=== PATIENT | female | born 1995 | race Two or more races ===

== ENCOUNTER 2024-11-08 11:55 | Emergency (ER) | payer OTHER, SELFPAY ==
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
[2024-11-08 12:09] VITALS: BP 119/59; BP 134/86; PULSE 76; PULSE 98; RESP 20; TEMP 36.6; O2SAT 100; O2SAT 98; BMI 21.7
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
[2024-11-08] MEDS: Acetaminophen 325 MG TABLET 975 MG PO (12:49)
[2024-11-08] MEDS: Ondansetron ODT 4 MG TAB.RAPDIS TRANSLINGU (12:50)
[2024-11-08] MEDS: Cyclobenzaprine HCl 5 MG TABLET PO (12:53)
[2024-11-08 13:34] VITALS: BP 123/60; PULSE 87; RESP 20; TEMP 36.7; O2SAT 99
--- OUTSIDE RECORDS SUMMARY | 2024-11-08 15:28 | XMS_ITS | Encounter Summary ---
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 Name Role Phone Unavailable Primary Care Provider Unavailabl e Encounter Details Date Type Department Care Team (Latest Contact Info) Description 05/15/2021 Abstract [facility] CONVERSIONS Dental, Provider, DDS Social History Tobacco Use Types Packs/Day Years Used Date Smoking Tobacco: Never Assessed Comments Unknown Sex and Gender Information Value Date Recorded Sex Assigned at Female 06/09/2022 10:32 AM EDT Legal Sex Female 10:32 AM EDT Gender Identity Female 06/09/2022 10:32 AM EDT Sexual Orientation Straight 06/09/2022 10 :32 AM EDT documented as of this encounter Plan of Treatment Not on file documented as of this encounter Visit Diagnoses Not on filedocumented in this encounter
--- OUTSIDE RECORDS SUMMARY | 2024-11-08 15:28 | XMS_ITS | Encounter Summary ---
Author Organization [employer] Address [address] [place] [address] [address] [place] [address] Care Team Providers Care [employer] Name Role Phone Unavailable Primary Care Provider Unavailabl e Encounter Details Date Type Department Care Team (Latest Contact Info) Description 05/21/2022 Abstract [facility] CONVERSIONS Dental, Provider, DDS Social History Tobacco [...]
--- OUTSIDE RECORDS SUMMARY | 2024-11-08 15:29 | XMS_ITS | Clinical Summary ---
Author Organization [facility] Address [address] [place] [address] [address] [place] [address] Care Team Providers Care Cupola Worker Name Role Phone Unavailable Primary Care Provider Unavailabl e Allergies No known active allergies Medications hydrOXYzine HCl (Atarax) 25 MG tablet Take 1 tablet by mouth. 06/08/2023 Active DULoxetine (Cymbalta) [address] capsule Take 20 mg by mouth in the morning. 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 03/28/2024 Pediculosis capitis 03/28/2024 Premenstrual dysphoric disorder 03/28/2024 Rectal hemorrhage 03/28/2024 Straining with stools 03/28/2024 Missing teeth, acquired 09/08/2023 Dental plaque 09/08/2023 Gingival bleeding 09/08/2023 Dental abscess 03/27/2023 Social History Tobacco Use Types Packs/Day Years Used Date Smoking Tobacco: Never Passive Smoke Exposure: Never Smokeless Tobacco: Never Tobacco Cessation:Counseling Given: No Alcohol Use Standard Drinks/Week Comments Never 0 (1 standard drink = 0.6 oz pur e alcohol) Comments Unknown Sex and Gender Information Value Date Recorded Sex Assigned at Female 06/09/2022 10:32 AM EDT Legal Sex Female 10:32 AM EDT Gender Identity Female 06/09/2022 10:32 AM EDT Sexual Orientation Straight 06/09/2022 10 :32 AM EDT Last Filed Vital Signs Vital Sign Reading Time Taken Comments Blood Pressure 120/75 03/29/2024 9:43 AM EDT Pulse 60 03/29/2024 9:43 AM EDT Temperature - - Respiratory Rate - - Oxygen Saturation - - Inhaled Oxygen Concentration - - Weight - - Height - - Body Mass Index - - Plan of Treatment Health Maintenance Due Date Last Done Comments Depression Screening 1994 HIV Screening 1994 SDOH Screening 1994 Alcohol/Substance Use Screening 2006 Family Planning (PISQ) 2009 Hepatitis C Screening 02/25/2012 Pap Smear 2015 Hepatitis B Vaccines (3 of 3 - 19+ 3-dose series) 08/06/2018 03/08/2018, 02/04/2018, 05/26/2014 Dental Oral Exam 11/20/2022 05/21/2022, 05/15/2021 Cervical Cancer Screening 02/25/2024 HPV/Cotest 02/25/2024 COVID-19 Vaccine ( season) 2024 Influenza Vaccine (#1) 2024 6, 05/26/2014, 05/14/2012, Additional history exists Dental Prophylaxis 09/30/2024 03/29/2024, 0 09/08/2023, 05/21/2022, Additional history exists Tobacco Screening 03/28/2025 03/28/2024 Dental X-Ray: Bitewings 03/30/2025 03/29/20 24, 09/08/2023, 08/17/2023, Additional history exists DTaP/Tdap/Td Vaccines (5 - Td or Tdap) 03/28/2026 03/28/2016, 12/04/2014, 03/15/2013, Additional history exists Dental X-Ray: Full Mouth 03/28/2026 023, 05/15/2021, 07/10/2020 Zoster Vaccines (1 of 2) 02/25/2044 RSV Patients and Patients Aged 60 years or older (1 - 1-dose 75+ series) 2069 HPV Vaccines Completed 05/31/2010, 08/12, 07/20/2007 Meningococcal Vaccine Completed 01/12/2012, 009 HIB Vaccines Aged Out No longer eligi ble based on patient's age to complete this topic Hepatitis A Vaccines Aged Out No long er eligible based on patient's age to complete this topic IPV Vaccines Aged Out No longer eligi ble based on patient's age to complete this topic Pneumococcal Vaccine: Pediatrics (0 to 5 Years) and At-Risk Patients (6 to 49) Years) Aged Out No longer eligible based on patient's age to complete this topic RSV under 20 months Aged Out No longe r eligible based on patient's age to complete this topic Rotavirus Vaccines Aged Out No longer eligible based on patient's age to complete this topic Procedures Procedure Name Priority Date/Time Associated Diagnosis Comments PROPHYLAXIS - ADULT Routine 03/29/2024 9 :30 AM EDT BITEWINGS - 4 RADIOGRAPHIC IMAGES Routine 03/29/2024 9:30 AM EDT PANORAMIC RADIOGRAPHIC IMAGE Routine 03/27/2023 3:00 PM EDT PERIODIC ORAL EVALUATION - ESTABLISHED PATIENT Routine 05/21/2022 12:00 AM EDT from Last 3 Months or Most Recently Relevant to Health Maintenance Insurance [facility] STAND ADULT
== END 2024-11-08 13:34 | disposition home or self-care (01) ==
PROVIDERS: Emergency Provider Emergency Medicine; PCP Physician Assistant Medical
DX: S16.1XXA Strain of muscle, fascia and tendon at neck level, initial encounter (principal); S80.02XA Contusion of left knee, initial encounter; V43.52XA Car driver injured in collision with other type car in traffic accident, initial encounter; M62.838 Other muscle spasm; G44.209 Tension-type headache, unspecified, not intractable; Y93.89 Activity, other specified; Y92.410 Unspecified street and highway as the place of occurrence of the external cause; Y99.9 Unspecified external cause status
CPT/HCPCS: 73564; 99283

== ENCOUNTER → 2024-11-08 12:29 | Outpatient (BNV) | payer OTHER, SELFPAY | PROVIDERS: Emergency Provider Emergency Medicine; Visit Provider Radiology Diagnostic Radiology | DX: M25.562 Pain in left knee (principal); V89.2XXA Person injured in unspecified motor-vehicle accident, traffic, initial encounter | CPT/HCPCS: 73564 ==

== ENCOUNTER → 2025-01-25 08:15 | Outpatient (BNV) | payer OTHER, SELFPAY | PROVIDERS: Visit Provider Psychiatry & Neurology Psychiatry | DX: F34.89 Other specified persistent mood disorders (principal); F90.9 Attention-deficit hyperactivity disorder, unspecified type; F32.81 Premenstrual dysphoric disorder; F41.1 Generalized anxiety disorder; F43.9 Reaction to severe stress, unspecified | CPT/HCPCS: 99499 ==

== ENCOUNTER → 2025-01-26 12:19 | Outpatient (REF) | payer OTHER, SELFPAY ==
--- NOTE | 2025-01-26 12:25 | ECG_ITS ---
Test Reason : CHECK QT Blood Pressure : */* mmHG Vent. Rate : 64 BPM Atrial Rate : 64 BPM P-R Int : 142 ms QRS Dur : 94 ms QT Int : 390 ms P-R-T Axes : 80 70 67 degrees QTcB Int : 402 ms Normal sinus rhythm Incomplete right bundle branch block Borderline ECG No previous ECGs available Referred By: Mayela Miguel Electronically Signed By: Carlos Saez
[2025-01-26 12:54] LABS: MANUAL DIFF FLAG NO
[2025-01-26 13:20] LABS: Basophils Percent Auto 0.4 % (0-2); Eosinophils Percent Auto 0.6 % (0-4); Hematocrit 38.8 % (37.0-47.0); Hemoglobin 12.7 g/dl (12.0-16.0); Imm Gran Abs Auto 0.02 X10*3/uL (0.00-0.03); Imm Gran Pct Auto 0.4 % (0.0-0.4); Lymphocytes Absolute Auto 1.8 X10*3/uL (1.2-4.9); Lymphocytes Percent Auto 35.9 % (20-40); Mean Corpuscular HGB Conc 32.7 g/dl (31.0-35.0); Mean Corpuscular Hemoglobin 29.5 pg (27.0-33.0); Mean Corpuscular Volume 90.2 fL (80.0-98.0); Mean Platelet Volume 10.7 fL (9.4-12.3); Monocytes Absolute Auto 0.3 X10*3/uL (0.1-1.2); Monocytes Percent Auto 5.6 % (2-11); Neutrophils Absolute Auto 2.9 x10*3/uL (2.0-8.3); Neutrophils Percent Auto 57.1 % (45-73); Platelet Count 234 X10*3/uL (160-400); Red Cell Distribution Width 13.2 % (11.0-16.0)
--- OUTSIDE RECORDS SUMMARY | 2025-01-26 13:30 | XMS_ITS | Clinical Summary ---
Author Organization [facility] Address [address] [place] [address] Phone Care Team Providers Care Traffic Personnel Supervisor Name Role Phone Physician, Pcp Unknown Primary Care Provider Deborah vailable Allergies No known active allergies Encounters Date Type Department Care Team Description 12/23/2024 11:02 PM EDT - 12/24/2024 3:33 AM EDT Emergency [facility] Emergency [address] [place] [address] Discharge Disposition: Left Against Medical Advice from Last 3 Months Medical History Medical History Date Comments Asthma Social History Tobacco Use Types Packs/Day Years Used Date Smoking Tobacco: Never Smokeless Tobacco: Never Tobacco Cessation:Counseling Given: Not Answered Comments Unknown Sex and Gender Information Value Date Recorded Sex Assigned at Not on file Legal Sex Female 5:45 AM EST Gender Identity Not on file Sexual Orientation Not on file Obstetrics History Last Filed Vital Signs Vital Sign Reading Time Taken Comments Blood Pressure 119/78 12/23/2024 11:07 PM EDT Pulse 83 12/23/2024 11:07 PM EDT Temperature 37.1 C (98.8 F) 12/23/2024 11:07 PM EDT Respiratory Rate 16 12/23/2024 11:07 PM EDT Oxygen Saturation 100% 12/23/2024 11:07 PM EDT Inhaled Oxygen Concentration - - Weight 54.4 kg (120 lb) 12/23/2024 11:07 PM EDT Height 154.9 cm (5' 1 ) 12/23/2024 11:07 PM EDT Body Mass Index 22.67 12/23/2024 11:07 PM EDT Plan of Treatment Health Maintenance Due Date Last Done Comments DTaP,Tdap,and Td Vaccines (1 - Tdap) 2013 Hepatitis B Vaccines (1 of 3 - 19+ 3-dose series) 2013 Cervical Cancer Screening: P ap Smear 2015 COVID-19 Vaccine (2023-2 5 season) 2024 Depression Screening 12/24/2024 HIV Screening 12/24/2024 Hepatitis C Screening 12/24/2024 Social Influencers of Health Screening 12/24/2024 Influenza Vaccine (Season Ended) 2025 HIB Vaccines Aged Out No longer eligi ble based on patient's age to complete this topic HPV Vaccines Aged Out No longer eligi ble based on patient's age to complete this topic Hepatitis A Vaccines Aged Out No long er eligible based on patient's age to complete this topic IPV Vaccines Aged Out No longer eligi ble based on patient's age to complete this topic MMR Vaccines Aged Out No longer eligi ble based on patient's age to complete this topic Meningococcal ACWY Vaccine Aged Out N o longer eligible based on patient's age to complete this topic Meningococcal B Vaccine Aged Out No l onger eligible based on patient's age to complete this topic Pneumococcal Vaccine: Pediat rics (0 to 5 Years) and At-Risk Patients (6 to 64 Years) Aged Out No longer eligible b ased on patient's age to complete this topic RSV Immunization Patients Un jaswinder 20 months Aged Out No longer eligible b ased on patient's age to complete this topic Varicella Vaccines Aged Out No longer eligible based on patient's age to complete this topic Procedures Procedure Name Priority Date/Time Associated Diagnosis Comments ECG ANNOTATED 12/25/2024 TROPONIN I HIGH SENSITIVITY STAT 12/24/2024 1:41 AM EDT XR CHEST 2 VIEWS STAT 12/24/2024 12:0 5 AM EDT POC , URINE DIAGNOSTIC STAT 12/23/2024 11:59 PM EDT CBC WITH AUTO DIFFERENTIAL STAT 12/23/2024 11:51 PM EDT B-TYPE NATRIURETIC PEPTIDE STAT 12/23/2024 11:51 PM EDT MAGNESIUM STAT 12/23/2024 11:51 PM EDT LIPASE STAT 12/23/2024 11:51 PM EDT COMPREHENSIVE METABOLIC PANEL STAT 12/23/2024 11:51 PM EDT CBC AND DIFFERENTIAL STAT 12/23/2024 11:51 PM EDT TROPONIN I HIGH SENSITIVITY STAT 12/23/2024 11:51 PM EDT ECG 12-LEAD STAT 12/23/2024 11:17 PM EDT from Last 3 Months Results * ECG-Annotated (12/25/2024) us Provider Onbase ECG ORDERABLES Final Result * Troponin I high sensitivity (12/24/2024 1:41 AM EDT) Only the most recent of2 resultswithin the time period is included. High Sensitivity Troponin I 3 <=54 ng/L LAB CHEMISTRY METHOD 12/24/2024 2:41 AM EDT [facility] Blood Venous blood specimen / Unknown Venipuncture / Unknown 12/24/2024 1:41 AM EDT 12/24/2024 2:16 AM EDT Narrative [facility] - 12/24/2024 2:41 AM EDT High levels of biotin in samples may falsely decrease hsTroponin values. Use caution when interpreting hsTroponin results in patients taking biotin who exhibit renal impairment (eGFR <60) or in patients taking more than 20 mg/day of biotin. Adithya Cloud MD LAB BLOOD ORDERABLES Final Resu lt [facility]) [facility] [address] [place] [address], [place] [phone] * XR Chest 2 Views (12/24/2024 12:05 AM EDT) Anatomical Region Laterality Modality Body Radiographic Zully ging 12/24/2024 7:23 AM EDT Impressions 12/24/2024 7:27 AM EDT No focal pneumonia or major zone atelectasis. Relatively large lung volumes. -------- FINAL REPORT -------- Dictated By: Andrzej Lopez Dictated Date: 12/24/2024 07:23 ET Assigned Physician: Andrzej Lopez Reviewed and Electronically Signed By: Andrzej Lopez Signed Date: 12/24/2024 07:27 ET Workstation ID: [id number] Transcribed By: Self Edit Transcribed Date: 12/24/2024 07:23 ET Narrative 12/24/2024 7:27 AM EDT EXAMINATION: CHEST CLINICAL INFORMATION: Chest pain COMPARISON: Frontal view 05/20/15 TECHNIQUE: 2 views of the chest FINDINGS: The cardiac size, mediastinal contours and ellyn are within normal limits. There are large lung volumes. There is no alveolar edema. No focal area of consolidation or mediastinal atelectasis. No pleural fluid or pneumothorax. There is a biopsy site marker in the right breast. Procedure Note Andrzej Lopez MD - 12/24/2024 EXAMINATION: CHEST CLINICAL INFORMATION: Chest pain COMPARISON: Frontal view 05/20/15 TECHNIQUE: 2 views of the chest FINDINGS: The cardiac size, mediastinal contours and ellyn are within normal limits.There are large lung volumes. There is no alveolar edema. No focal area of consolidation or mediastinal atelectasis. No pleural fluid or pneumothorax. There is a biopsy site marker in the right breast. IMPRESSION: No focal pneumonia or major zone atelectasis. Relatively large lung volumes. -------- FINAL REPORT -------- Dictated By: Andrzej Lopez Dictated Date: 12/24/2024 07:23 ET Assigned Physician: Andrzej Lopez Reviewed and Electronically Signed By: Andrzej Lopez Signed Date: 12/24/2024 07:27 ET Workstation ID: [id number] Transcribed By: Self Edit Transcribed Date: 12/24/2024 07:23 ET Adithya Cloud MD IMG XR PROCEDURES Final Result * POC , urine manually resulted (12/23/2024 11:59 PM EDT) Pathologist [facility] HCG, Ur POC Negative Negative POC hCG Int QC Pass? Yes Yes Urine Urine specimen obtained by clean catch procedure / Unknown 12/23/2024 11:59 PM EDT [facility] RANGEL POINT OF CARE TEST ENTER/EDIT O RDERABLES Final Result * CBC auto differential (12/23/2024 11:51 PM EDT) [facility] WBC 7.2 4.8 - 10.8 K/mcL LAB HEMETOLOGY METHOD 12/24/2024 12:36 AM [facility] RBC 4.20 3.80 - 4.80 M/mcL LAB HEMETOLOGY METHOD 12/24/2024 12:36 AM [facility] Hemoglobin 12.6 11.5 - 16.0 g/dL LAB HEMETOLOGY METHOD 12/24/2024 12:36 AM [facility] Hematocrit 38.1 35.0 - 47.0 % LAB HEMETOLOGY METHOD 12/24/2024 12:36 AM [facility] MCV 90.9 79.0 - 98.0 FL LAB HEMETOLOGY METHOD 12/24/2024 12:36 AM [facility] MCH 30.1 27.0 - 32.0 pcg LAB HEMETOLOGY METHOD 12/24/2024 12:36 AM [facility] MCHC 33.1 32.0 - 37.0 g/dL LAB HEMETOLOGY METHOD 12/24/2024 12:36 AM [facility] RDW 12.7 11.0 - 15.0 % LAB HEMETOLOGY METHOD 12/24/2024 12:36 AM [facility] Platelets 258 130 - 400 K/mcL LAB HEMETOLOGY METHOD 12/24/2024 12:36 AM [facility] MPV 10.6 7.0 - 11.0 FL LAB HEMETOLOGY METHOD 12/24/2024 12:36 AM [facility] NRBC 0.0 <1.0 % LAB HEMETOLOGY METHOD 12/24/2024 12:36 AM [facility] NRBC Absolute 0.00 <0.10 K/mcL LAB HEMETOLOGY METHOD 12/24/2024 12:36 AM [facility] Neutrophils Relative 52.6 % LAB HEMETOLOGY METHOD 12/24/2024 12:36 AM [facility] Lymphocytes Relative 40.4 % LAB HEMETOLOGY METHOD 12/24/2024 12:36 AM [facility] Monocytes Relative 5.7 % LAB HEMETOLOGY METHOD 12/24/2024 12:36 AM [facility] Eosinophils Relative 0.6 % LAB HEMETOLOGY METHOD 12/24/2024 12:36 AM [facility] Basophils Relative 0.4 % LAB HEMETOLOGY METHOD 12/24/2024 12:36 AM [facility] Immature Granulocytes Relative 0.3 % LAB HEMETOLOGY METHOD 12/24/2024 12:36 AM [facility] Neutrophils Absolute 3.77 1.50 - 7.00 K/mcL LAB HEMETOLOGY METHOD 12/24/2024 12:36 AM [facility] Lymphocytes Absolute 2.89 1.00 - 5.00 K/mcL LAB HEMETOLOGY METHOD 12/24/2024 12:36 AM [facility] Monocytes Absolute 0.41 0.20 - 1.00 K/mcL LAB HEMETOLOGY METHOD 12/24/2024 12:36 AM [facility] Eosinophils Absolute 0.04 0.00 - 0.50 K/mcL LAB HEMETOLOGY METHOD 12/24/2024 12:36 AM EDT [facility] Basophils Absolute 0.03 0.00 - 0.20 K/[facility] LAB HEMETOLOGY METHOD 12/24/2024 12:36 AM EDT [facility] Immature Granulocytes Absolute 0.02 0.00 - 0.03 K/[facility] LAB HEMETOLOGY METHOD 12/24/2024 12:36 AM EDT [facility] Blood Venous blood specimen / Unknown Venipuncture / Unknown 12/23/2024 11:51 PM EDT 12/24/2024 12:32 AM EDT Adithya Brian Cloud MD LAB BLOOD ORDERABLES Final Resu lt Performing Organization Address [facility]/ZIP Co de Phone Number [facility] [address] [place] [address], * B-type natriuretic peptide (12/23/2024 11:51 PM EDT) BNP 5 <=100 pcg/mL LAB CHEMISTRY METHOD 12/24/2024 1:03 AM EDT [facility] Blood Venous blood specimen / Unknown Venipuncture / Unknown 12/23/2024 11:51 PM EDT 12/24/2024 12:32 AM EDT Adithyavaleri Cloud MD LAB BLOOD ORDERABLES Final Resu lt [facility] [address] [place] [address], [place] [phone] * Magnesium (12/23/2024 11:51 PM EDT) Magnesium 2.3 1.9 - 2.6 mg/dL LAB CHEMISTRY METHOD 12/24/2024 1:00 AM EDT [facility] Blood Venous blood specimen / Unknown Venipuncture / Unknown 12/23/2024 11:51 PM EDT 12/24/2024 12:32 AM EDT us Adithya Cloud MD LAB BLOOD ORDERABLES Final Resu lt Performing Organization Address City/[facility]/ZIP Co de Phone Number [facility] [address] [place] [address], [place] [phone] * Lipase (12/23/2024 11:51 PM EDT) Pathologist [facility] Lipase 52 13 - 75 unit/L LAB CHEMISTRY METHOD 12/24/2024 1:00 AM EDT [facility] Blood Venous blood specimen / Unknown Venipuncture / Unknown 12/23/2024 11:51 PM EDT 12/24/2024 12:32 AM EDT us Adithya Cloud MD LAB BLOOD ORDERABLES Final Resu lt Performing Organization Address City/[facility]/ZIP Co de Phone Number [facility] [address] [place] [address], [place] [phone] * Comprehensive metabolic panel (12/23/2024 11:51 PM EDT) [facility] Sodium 141 133 - 145 mmol/L LAB CHEMISTRY METHOD 12/24/2024 1:00 AM EDT [facility] Potassium 3.8 3.5 - 5.5 mmol/L LAB CHEMISTRY METHOD 12/24/2024 1:00 AM EDT [facility] Chloride 107 96 - 110 mmol/L LAB CHEMISTRY METHOD 12/24/2024 1:00 AM [facility] CO2 28 21 - 32 mmol/L LAB CHEMISTRY METHOD 12/24/2024 1:00 AM T [facility] Anion Gap 6 3 - 11 LAB CHEMISTRY METHOD 12/24/2024 1:00 AM EDT [facility] Glucose 99 70 - 100 mg/dL LAB CHEMISTRY METHOD 12/24/2024 1:00 AM [facility] BUN 7 5 - 25 mg/dL LAB CHEMISTRY METHOD 12/24/2024 1:00 AM [facility] Creatinine 0.64 0.50 - 1.10 mg/dL LAB CHEMISTRY METHOD 12/24/2024 1:00 AM [facility] eGFR 122 >=60 mL/min/1. 73m2 LAB CHEMISTRY METHOD 12/24/2024 1:00 AM [facility] Comment:Calculation based on the Chronic Kidney Disease Epidemiology Collaboration (CKD-EPI) equation refit without adjustment for race. BUN/Creatinine Ratio 10.9 LAB CHEMISTRY METHOD 12/24/2024 1:00 AM [facility] Calcium 9.1 8.5 - 10.5 mg/dL LAB CHEMISTRY METHOD 12/24/2024 1:00 AM [facility] AST (SGOT) 13 10 - 42 unit/L LAB CHEMISTRY METHOD 12/24/2024 1:00 AM [facility] ALT (SGPT) 22 10 - 60 unit/L LAB CHEMISTRY METHOD 12/24/2024 1:00 AM [facility] Alkaline Phosphatase 61 42 - 121 unit/L LAB CHEMISTRY METHOD 12/24/2024 1:00 AM [facility] Total Protein 7.3 6.0 - 8.0 g/dL LAB CHEMISTRY METHOD 12/24/2024 1:00 AM [facility] Albumin 4.0 3.2 - 5.0 g/dL LAB CHEMISTRY METHOD 12/24/2024 1:00 AM [facility] Total Bilirubin 0.3 0.0 - 1.4 mg/dL LAB CHEMISTRY METHOD 12/24/2024 1:00 AM [facility] Blood Venous blood specimen / Unknown Venipuncture / Unknown 12/23/2024 11:51 PM EDT 12/24/2024 12:32 AM EDT Adithyavaleri Cloud MD LAB BLOOD ORDERABLES Final Resu lt [facility] [address] [place] [address], [place] [phone] * ECG 12 lead (12/23/2024 11:17 PM EDT) Ventricular Rate ECG 74 BPM GEMUSE Atrial Rate 74 BPM GEMUSE P-R Interval 156 ms GEMUSE QRS Duration 102 ms GEMUSE Q-T Interval 388 ms GEMUSE QTc 430 ms GEMUSE P Wave [place] 73 degrees GEMUSE R [place] 59 degrees GEMUSE T [place] 63 degrees GEMUSE ECG Interpretation Normal sinus rhythm Incomplete right bundle branch block Borderline ECG No previous ECGs available Confirmed by Brian BRONSON JAMES ([id number]) on 12/25/2024 6:49:39 AM GEMUSE 12/23/2024 11:1 7 PM EDT 12/25/2024 6:49 AM EDT Adithya Cloud MD ECG ORDERABLES Final Result GEMUSE from Last 3 Months Insurance [facility] [employer] ADVANTAGE Care Teams Traffic Personnel Supervisor Relationship Specialty Start Date End Date Physician, Pcp Unknown PCP - General 12/24/24
[2025-01-26 13:32] LABS: Estimated Average Glucose 100 mg/dL; Hemoglobin A1C 117.5266 umol/L; Hemoglobin A1c % 5.1 % (<6.0)
[2025-01-26 14:12] LABS: Erythrocyte Sedimentation Rate 2 MM/HR (0-20)
[2025-01-26 14:29] LABS: Alanine Aminotransferase 16 U/L (0-31); Albumin Level 5.1 g/dL (3.5-5.0); Alkaline Phosphatase 55 U/L (39-117); Anion Gap 12 (12-20); Aspartate Amino Transferase 18 U/L (5-31); Bilirubin Total 0.6 mg/dL (0.0-1.0); Blood Urea Nitrogen 6 mg/dL (9-16); C Reactive Protein < 0.04 mg/dL (< or = 0.50); Calcium 9.7 mg/dL (8.4-10.2); Carbon Dioxide 24 mmol/L (22-29); Chloride 108 mmol/L (96-108); Cholesterol 196 mg/dL (<200); Estimated Glomerular Filt Rate > 60; Glucose Random 81 mg/dL (60-115); HDL Cholesterol 73 mg/dL (>40); Iron 103 mcg/dL (30-160); LDL Cholesterol Calculated 115 mg/dL (<100); Magnesium 2.4 mg/dL (1.6-2.6); Percent Iron Saturation 27 % (15-50); Potassium 4.2 mmol/L (3.3-5.1); Sodium 140 mmol/L (135-145); Total Iron Binding Capacity 380 mcg/dL (228-428); Total Protein 7.8 g/dL (6.5-8.0); Triglycerides 41 mg/dL (<150); Unsaturated Iron Binding 277 ug/dL
[2025-01-26 14:47] LABS: Free T4 (Free Thyroxine) 0.87 ng/dL (0.71-1.85); HCG Quantitative < 2 mIU/mL; Thyroid Stimulating Hormone 0.79 uIU/mL (0.32-4.0); Vitamin D 25-OH Total 21.7 ng/mL (>30)
[2025-01-26 14:50] LABS: Folate 12.9 ng/mL (> or = 4.0); Vitamin B12 547 pg/mL (200-900)
[2025-01-26 18:20] LABS: CT PCR NOT DETECTED (Not Detect.); NG PCR NOT DETECTED (Not Detect.)
[2025-01-27 08:03] LABS: Syphilis Screen Nonreactive (Nonreactive)
[2025-01-27 08:12] LABS: HBS Num1 58.87 mIU/mL (0-7.99); HBc Num1 0.38 S/CO (0.00-0.79); HBsAGNum1 0.39 S/CO (0.00-0.99); HIV AB/AG Nonreactive (Nonreactive); HIV Num 1 0.07 S/CO (0.00-0.99); Hepatitis B Core Antibody Nonreactive (Nonreactive); Hepatitis B Surface Antigen Negative (Negative); ~HepC Num1 0.11 S/CO (0.00-0.79); ~Hepatitis B Surface Antibody REACTIVE (Nonreactive); ~Hepatitis C Antibody Nonreactive (Nonreactive)
[2025-01-31 16:44] LABS: Vitamin B1 9 nmol/L (8-30)
[2025-01-31 17:49] LABS: Homocysteine 8.7 umol/L (< or = 11.0)
== END ==
LOC: HO.CARD 12:19
PROVIDERS: PCP Physician Assistant Medical; Visit Provider Psychiatry & Neurology Psychiatry
DX: F39 Unspecified mood [affective] disorder (principal)
CPT/HCPCS: 80053; 80061; 82306; 82607; 82746; 83036; 83090; 83540; 83735; 84425; 84439; 84443; 84702; 85025; 85652; 86140; 86704; 86706; 86780; 86803; 87340; 87389; 87491; 87591; 93005

== ENCOUNTER → 2025-01-26 12:25 | Outpatient (BNV) | payer OTHER, SELFPAY | PROVIDERS: PCP Physician Assistant Medical; Visit Provider Internal Medicine Cardiovascular Disease | DX: I45.10 Unspecified right bundle-branch block (principal) | CPT/HCPCS: 93010 ==

== ENCOUNTER 2025-02-13 08:15 | Outpatient (RCR) | payer OTHER, SELFPAY ==
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
[2025-01-25 13:44] VITALS: BP 100/82; PULSE 60; RESP 18; TEMP 37.1
[2025-01-25 13:49] VITALS: BMI 22.5
--- NOTE | 2025-01-25 14:57 | PC.NURSE ---
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 Upon approach Leticia is calm and pleasant, good hygiene noted, good eye contact, calm affect. When asked how she felt stated 'Ok, she reports that she has been struggling with flashbacks, My PTSD, she also stated It's been really hard handling my moods. She reports it's also been hard Handling all my medical issues, she reports she would like to obtain more knowledge on her Bipolar Disorder, possibly ADHD, PTSD, I just want to be diagnosed properly and treated with the right meds. She reports this has affected her parenting and relationship with her family. When asked how she slept she reported she is trying to work on her sleeping scheduled as she is up all night and sleeps all morning. When asked if she had any thoughts of wanting to hurt self or kill self stated No, when asked if she had any thoughts of wanting to hurt or kill others stated No. Leticia reports she has a Handful of people that are supportive specially my friends. She appears future oriented, she was given a copy of her crisis plan.
--- NOTE | 2025-01-26 14:50 | HO.PHP ---
This case was opened and reviewed on treatment teams.
--- NOTE | 2025-01-27 18:37 | P.PNPSP_ITS ---
Subjective Subjective Date of Service: 01/27/25 Reason For Visit: anxiety,depresion Mental Status Exam Mental Status Exam Narrative: Alert, oriented, in no acute distress. Calm, cooperative, engaged. No psychomotor agitation or neurovegetative retardation. Eye contact maintained. Mood depressed, affect anxious, constricted. Speech normal. Thought process linear, coherent. Thought content related to stressors, transient hopelessness, denies SI or HI. No paranoia or delusional content elicited. No evidence of psychosis. Insight and judgment - fair but adequate. Diagnostics Vital Signs (24Hr): BMI result Body Mass Index 22.5 Assessment & Plan Assessment & Plan (1) Other specified persistent mood disorders: Status: Acute Code(s): F34.89 - Other specified persistent mood disorders Assessment and Plan: r/o Bipolar disorder, current episode depressed, mild or moderate severity, unspecified (2) Attention-deficit hyperactivity disorder, unspecified type: Status: Acute Code(s): F90.9 - Attention-deficit hyperactivity disorder, unspecified type (3) PMDD (premenstrual dysphoric disorder): Status: Acute Code(s): F32.81 - Premenstrual dysphoric disorder (4) VIOLET (generalized anxiety disorder): Status: Acute Code(s): F41.1 - Generalized anxiety disorder Assessment and Plan: h/o SAD (5) Trauma and stressor-related disorder: Status: Acute Code(s): F43.9 - Reaction to severe stress, unspecified Plan Continue PHP VS reviewed: afebrile, BP 100/82;?60 bpm increase oxcarbazapine to 300 mg BID start bupropion SR 50-100 mg qam start guanfacine ER 1 mg qam continue regular medications for now Routine lab work as indicated EKG, routine for baseline QTc for medication considerations as indicated UDS as indicated MassPat reviewed Continue to monitor as per protocol Certification I certify that partial hospital treatment is medically necessary due to the symptoms and problems resulting from the patient's mental illness and the failure to treat the patient at the partial hospital level of care would likely result in the patient requiring inpatient psychiatric care which could not be pr evented at a less intensive level of care. Total time managing care of this patient today ____ minutes. Discharge Plan Discharge Attending provider: Mayela Miguel Medications: No Action oxcarbazepine 150 mg tablet 150 mg PO BID valacyclovir 500 mg tablet 500 mg PO DAILY Patient Comments: Per patient she takes this everyday, [facility] pharmacy unable to confirm patient stated she gets it delivered will bring pharmacy information in. hydroxyzine HCl 25 mg tablet 25 mg PO TID PRN (Reason: anxiety) gabapentin 100 mg capsule 100 mg PO BID ferrous sulfate 324 mg (65 mg iron) tablet,delayed release (DR/EC) 324 mg PO Q OTHER DAY Patient Comments: Per patient she takes this everyday other day. [facility] couldn't confirm, patient will bring pharmacy information in as she reports she gets it delivered. Print Language: Mohawk
--- NOTE | 2025-01-30 14:54 | HO.PHP ---
PHP staff member received a voicemail from Leticia stating that she won't be in attendance to program today due to not having child nutrition manager.
--- NOTE | 2025-02-12 01:10 | P.EN_ITS ---
Event Note Date of Service: 02/09/25 Event Note: Anticipated seeing patient today, who was not present at [facility] today. Time Spent With Patient Time: Total time managing care of this patient today ____ minutes.
--- NOTE | 2025-02-12 01:10 | PM.EVENT ---
Event Note Date of Service: 02/09/25 Event Note: Anticipated seeing patient today, who was not present at [facility] today. Time Spent With Patient Time: Total time managing care of this patient today ____ minutes.
--- NOTE | 2025-02-13 14:50 | PC.NURSE ---
Dr Miguel reviewed EKG and Lab results on 01/27/25 and 01/30/25 including BUN 6, Albumin 5.1, LDL 115, Vit D 21.7, EKG NSR Incomplete RBBB. No new orders.
--- NOTE | 2025-02-13 23:47 | P.PNPSP_ITS ---
Subjective Subjective Date of Service: 02/13/25 Reason For Visit: anxiety,depresion Diagnostics Vital Signs (24Hr): BMI result Body Mass Index 22.5 Assessment & Plan Certification I certify that partial hospital treatment is medically necessary due to the symptoms and problems resulting from the patient's mental illness and the failure to treat the patient at the partial hospital level of care would likely result in the patient requiring inpatient psychiatric care which could not be prevented at a less intensive level of care. Total time managing care of this patient today ____ minutes. Discharge Plan Discharge Attending provider: Mayela Miguel Medications: New oxcarbazepine 300 mg tablet 300 mg PO BID Qty: 30 0RF bupropion HCl 100 mg tablet sustained-release 12 hr 100 mg PO QAM Qty: 14 0RF guanfacine 1 mg tablet extended release 24 hr 1 mg PO DAILY Qty: 14 0RF Continued hydroxyzine HCl 25 mg tablet 25 mg PO TID PRN (Reason: anxiety) ferrous sulfate 324 mg (65 mg iron) tablet,delayed release (DR/EC) 324 mg PO Q OTHER DAY Patient Comments: Per patient she takes this everyday other day. [facility] couldn't confirm, patient will bring pharmacy information in as she reports she gets it delivered. Changed valacyclovir 500 mg tablet 500 mg PO DAILY PRN (Reason: Outbreak) Qty: 1 0RF Patient Comments: Per patient she takes this everyday, [facility] pharmacy unable to confirm patient stated she gets it delivered will bring pharmacy information in. Discontinued oxcarbazepine 150 mg tablet 150 mg PO BID gabapentin 100 mg capsule 100 mg PO BID Patient Education: ADHD in Adults (ED), ADHD in Adults (DC), Depression (DC), PTSD (Post Traumatic Stress Disorder) in Children (DC), Social Anxiety Disorder (ED), Anxiety (ED), Anxiety (GEN) Print Language: Botswan[place]
== END 2025-02-13 23:59 | disposition home or self-care (01) ==
LOC: HO.PHPA 08:15
PROVIDERS: Visit Provider Psychiatry & Neurology Psychiatry
DX: F34.89 Other specified persistent mood disorders (principal); F90.9 Attention-deficit hyperactivity disorder, unspecified type; F32.81 Premenstrual dysphoric disorder; F41.1 Generalized anxiety disorder; F43.9 Reaction to severe stress, unspecified
CPT/HCPCS: 90791; 90853